=== PATIENT | female | born 1985 | race African-American/Black ===

== ENCOUNTER 2021-11-24 18:00 | Inpatient (IN) | payer OTHER ==
[2021-11-24 20:09] VITALS: BMI 26.7
[2021-11-24] MEDS ORDERED: Promethazine HCl 25 MG/ML VIAL IM PRN (20:49)
[2021-11-24] MEDS ORDERED: Misoprostol 200 MCG TAB PR PRN (20:49)
[2021-11-24] MEDS ORDERED: Ibuprofen 800 MG TAB PO PRN (20:49)
[2021-11-24] MEDS ORDERED: hydrALAZINE 20 MG/ML VIAL SLOW IVP PRN (20:49)
[2021-11-24] MEDS ORDERED: Acetaminophen 500 MG TAB PO PRN (20:49)
[2021-11-24] MEDS ORDERED: Ondansetron PF 4 MG/2 ML Vial IVP PRN (20:49)
[2021-11-24] MEDS ORDERED: Lidocaine 1% (PF) 30 ML VIAL SC PRN (20:49)
[2021-11-24] MEDS ORDERED: NS w/ Oxytocin 30 units 500 ML IV SCH ×2 (21:00→22:15)
[2021-11-24] MEDS ORDERED: Lactated Ringer's 1,000 ML IV SCH (21:00)
[2021-11-24 21:17] LABS: Hemoglobin 11.2 g/dL (12.0-15.5); Mean Corpuscular HGB CONC 33.4 g/dL (32.0-36.0); Mean Corpuscular Hemoglobin 33.2 pg (27.0-33.0); Mean Corpuscular Volume 99.4 fl (81.6-98.3); Mean Platelet Volume 11.2 fl (7.4-10.4); Platelet Count 195 10x3/uL (150-450); Red Blood Cell (RBC) Count 3.37 10x6/uL (3.90-5.03); White Blood Cell (WBC) Count 9.7 10x3/uL (3.5-10.5)
[2021-11-24 21:25] LABS: ALT (SGPT) Less than 6 U/L (8-55); AST (SGOT) 13 U/L (5-34); Albumin 3.7 g/dL (3.5-5.0); Alkaline Phosphatase 113 U/L (40-110); Anion Gap 12 mmol/L (10-20); BUN (Urea Nitrogen) 9 mg/dL (7.0-18.7); Bilirubin, Total 0.3 mg/dL (0.2-1.2); Calc. Creatinine Clearance 134 mL/min (70-130); Calcium 9.5 mg/dL (7.8-10.44); Carbon Dioxide 25 mmol/L (22-29); Chloride 105 mmol/L (98-107); Globulin 3.1 g/dL (2.4-3.5); Glucose 76 mg/dL (70-105); Potassium 4.2 mmol/L (3.5-5.1); Protein, Total 6.8 g/dL (6.0-8.3); Sodium 138 mmol/L (136-145); Uric Acid 4.7 mg/dL (2.6-6.0)
[2021-11-24 21:42] LABS: HIV (1/2) Antibody/Antigen Non-Reactive (NonReactive); HIV 1/2 INDEX 0.08 S/CO (<1.00); Hep B Surf Ag Non-Reactive S/CO (NonReactive); Syphilis Antibody Nonreactive (Nonreactive); Syphilis Antibody Index 0.07 S/CO (<1.00 Non-Reactive)
[2021-11-24] MEDS ORDERED: Penicillin G Potassium 5 MILL.UNITS in Sodium Chloride 0.9% 100 ML IVPB SCH (22:00)
[2021-11-24 22:47] LABS: Amphetamine Not Detected (NotDetected); Barbiturates Screen Not Detected (NotDetected); Benzodiazepine Screen Not Detected (NotDetected); Cocaine Metabolite Screen Not Detected (NotDetected); Methadone Not Detected (NotDetected); Methamphetamine Not Detected (NotDetected); Opiate Screen Not Detected (NotDetected); Oxycodone Screen Not Detected (NotDetected); Phencyclidine (PCP) Not Detected (NotDetected); THC/Cannabinoid Screen Detected (NotDetected); Tricyclic Screen Not Detected (NotDetected)
[2021-11-24 22:55] LABS: Creatinine, Urine 72.23 mg/dL (47-110); Protein, Urine Random Quant Less than 10 mg/dL (1-14)
[2021-11-25] MEDS ORDERED: Fentanyl 2 mcg/Bup 0.1% Cadd 100 ML ONE (03:31)
[2021-11-25] MEDS ORDERED: diphenhydrAMINE 50 MG/ML VIAL IVP PRN (03:55)
[2021-11-25] MEDS ORDERED: Ondansetron PF 4 MG/2 ML Vial IVP PRN ×2 (03:55→14:27)
[2021-11-25] MEDS ORDERED: Promethazine HCl 25 MG/ML VIAL IM PRN ×2 (03:55→14:27)
[2021-11-25] MEDS ORDERED: ePHEDrine Sulfate 50 MG/10 ML VIAL SLOW IVP PRN (03:55)
[2021-11-25] MEDS ORDERED: Hydrocerin (Eucerin) Cream 120 gm Jar TOP PRN (03:55)
[2021-11-25] MEDS ORDERED: Naloxone HCl 0.4 mg/ml Vial IVP PRN ×2 (03:55)
[2021-11-25] MEDS ORDERED: Communication Order-Pharmacy FS SCH (04:00)
[2021-11-25] MEDS ORDERED: Fentanyl 2 mcg/Bupivacaine 0.1% Cassette 100 ML EPIDURAL SCH (04:00)
[2021-11-25] MEDS ORDERED: Lactated Ringer's 500 ML IV PRN (04:06)
[2021-11-25] MEDS: Penicillin G 2.5 MILL.units 2.5 MILL.UNITS in Premix Bag 1 BAG IVPB SCH ×3 (04:40→15:11)
[2021-11-25] MEDS ORDERED: Bupivacaine/Epinephrine 0.25% 30 ML VIAL ONE (08:00)
[2021-11-25 08:08] LABS: SARS-CoV-2 NAA Rapid Test Not Detected (NotDetected)
[2021-11-25] MEDS ORDERED: NIFEdipine 10 MG CAP ONE (10:23)
[2021-11-25] MEDS ORDERED: NIFEdipine 10 MG CAP PO SCH (10:30)
[2021-11-25] MEDS ORDERED: Carboprost 250 MCG/ML AMP ONE (12:13)
[2021-11-25] MEDS ORDERED: Misoprostol 200 MCG TAB ONE (12:13)
[2021-11-25] MEDS ORDERED: hydrALAZINE 20 MG/ML VIAL SLOW IVP PRN (14:27)
[2021-11-25] MEDS ORDERED: Milk Of Magnesia 30 ML UDCUP PO PRN (14:27)
[2021-11-25] MEDS ORDERED: Methylergonovine 0.2 MG/ML VIAL IM PRN (14:27)
[2021-11-25] MEDS ORDERED: Benzocaine-Menthol 82.5 ML CAN TOP PRN (14:27)
[2021-11-25] MEDS ORDERED: Lanolin Ointment 7 GM TUBE TOP PRN (14:27)
[2021-11-25] MEDS ORDERED: NS w/ Oxytocin 30 units 500 ML IV SCH (14:27)
[2021-11-25] MEDS ORDERED: Bisacodyl 10 MG SUPP PR PRN (14:27)
[2021-11-25] MEDS ORDERED: Misoprostol 200 MCG TAB VAG PRN (14:27)
[2021-11-25] MEDS ORDERED: Ibuprofen 800 MG TAB PO SCH (14:45)
[2021-11-25] MEDS: Ferrous Sulfate 325 MG TAB PO SCH (15:11)
[2021-11-25] MEDS: Acetaminophen 325 MG TAB PO PRN ×2 (16:53→22:21)
[2021-11-25] MEDS: Ibuprofen 800 MG TAB PO SCH (21:09)
[2021-11-25] MEDS: Docusate 100 MG CAP PO SCH (21:10)
[2021-11-26] MEDS: Ibuprofen 800 MG TAB PO SCH ×3 (05:24→22:00)
[2021-11-26] MEDS: Acetaminophen 325 MG TAB PO PRN (06:30)
[2021-11-26] MEDS: Prenatal Vitamin 1 TAB PO SCH (09:00)
[2021-11-26] MEDS: Ferrous Sulfate 325 MG TAB PO SCH ×2 (09:00→16:53)
[2021-11-26] MEDS: Docusate 100 MG CAP PO SCH ×2 (09:01→22:01)
[2021-11-26] MEDS ORDERED: Boostrix 0.5 ML (Tdap) VIAL IM ONE (14:27)
[2021-11-26] MEDS ORDERED: diphenhydrAMINE 25 MG CAP PO PRN (19:44)
[2021-11-27] MEDS: Ibuprofen 800 MG TAB PO SCH (05:13)
[2021-11-27 05:24] VITALS: BP 110/66; TEMP 98.2
[2021-11-27] MEDS: Ferrous Sulfate 325 MG TAB PO SCH (08:29)
[2021-11-27] MEDS: Prenatal Vitamin 1 TAB PO SCH (09:30)
[2021-11-27] MEDS: Docusate 100 MG CAP PO SCH (09:30)
== END 2021-11-27 12:45 | disposition home or self-care (01) | DRG 806 ==
LOC: CSHLD 18:21 → CSHPP 11-25 14:50
PROVIDERS: ADMIT Obstetrics & Gynecology; ATTEND Obstetrics & Gynecology
PROC: 10E0XZZ Delivery of Products of Conception, External Approach (ICD-10-PCS; principal; 2021-11-25)
PROC: 10907ZC Drainage of Amniotic Fluid, Therapeutic from Products of Conception, Via Natural or Artificial Opening (ICD-10-PCS; 2021-11-25)
DX: O36.5930 Maternal care for other known or suspected poor fetal growth, third trimester, not applicable or unspecified (principal); O98.82 Other maternal infectious and parasitic diseases complicating childbirth; Z37.0 Single live birth; O99.324 Drug use complicating childbirth; O23.593 Infection of other part of genital tract in pregnancy, third trimester; O76 Abnormality in fetal heart rate and rhythm complicating labor and delivery; O99.824 Streptococcus B carrier state complicating childbirth; O99.334 Smoking (tobacco) complicating childbirth; F17.210 Nicotine dependence, cigarettes, uncomplicated; F15.10 Other stimulant abuse, uncomplicated; O13.4 Gestational [pregnancy-induced] hypertension without significant proteinuria, complicating childbirth; F12.10 Cannabis abuse, uncomplicated; A59.01 Trichomonal vulvovaginitis; N76.0 Acute vaginitis; O71.82 Other specified trauma to perineum and vulva; Z20.822 Contact with and (suspected) exposure to COVID-19; Z79.1 Long term (current) use of non-steroidal anti-inflammatories (NSAID); Z3A.40 40 weeks gestation of pregnancy; Z79.899 Other long term (current) drug therapy; Z82.49 Family history of ischemic heart disease and other diseases of the circulatory system
CPT/HCPCS: 80053; 80306; 82570; 84156; 84550; 85027; 86780; 86850; 86900; 86901; 87340; 87389; J1200; J2540; J2590; J3490; U0002

== ENCOUNTER 2022-11-30 13:21 | Inpatient (IN) | payer OTHER ==
[2022-11-30] MEDS ORDERED: Ondansetron PF 4 MG/2 ML Vial IVP PRN ×2 (13:29→14:57)
[2022-11-30] MEDS ORDERED: Promethazine HCl 25 MG/ML VIAL IM PRN (13:29)
[2022-11-30] MEDS ORDERED: hydrALAZINE 20 MG/ML VIAL SLOW IVP PRN ×5 (13:29→14:59)
[2022-11-30] MEDS ORDERED: NS w/ Oxytocin 30 units 500 ML IV SCH ×2 (13:30→15:00)
[2022-11-30] MEDS ORDERED: Penicillin G Potassium 5 MILL.UNITS VIAL ONE (13:42)
[2022-11-30] MEDS ORDERED: Ibuprofen 800 MG TAB PO PRN (13:44)
[2022-11-30] MEDS ORDERED: Lidocaine 1% (PF) 30 ML VIAL SC PRN (13:44)
[2022-11-30] MEDS ORDERED: Penicillin G Potassium 5 MILL.UNITS in Sodium Chloride 0.9% 100 ML IVPB SCH (13:45)
[2022-11-30] MEDS ORDERED: Tranexamic Acid 1,000 MG/10 ML VIAL IVP PRN (13:47)
[2022-11-30] MEDS ORDERED: Misoprostol 200 MCG TAB PR PRN (13:47)
[2022-11-30] MEDS ORDERED: Carboprost 250 MCG/ML AMP IM PRN (13:48)
[2022-11-30 14:04] LABS: Amphetamine Detected (NotDetected); Barbiturates Screen Not Detected (NotDetected); Benzodiazepine Screen Not Detected (NotDetected); Cocaine Metabolite Screen Not Detected (NotDetected); Methadone Not Detected (NotDetected); Methamphetamine Detected (NotDetected); Opiate Screen Detected (NotDetected); Oxycodone Screen Not Detected (NotDetected); Phencyclidine (PCP) Not Detected (NotDetected); THC/Cannabinoid Screen Detected (NotDetected); Tricyclic Screen Not Detected (NotDetected)
[2022-11-30 14:29] LABS: Hemoglobin 11.8 g/dL (12.0-15.5); Mean Corpuscular HGB CONC 32.3 g/dL (32.0-36.0); Mean Corpuscular Hemoglobin 32.7 pg (27.0-33.0); Mean Corpuscular Volume 101.1 fl (81.6-98.3); Mean Platelet Volume 11.1 fl (7.4-10.4); Platelet Count 161 10x3/uL (150-450); Red Blood Cell (RBC) Count 3.61 10x6/uL (3.90-5.03); White Blood Cell (WBC) Count 12.7 10x3/uL (3.5-10.5)
[2022-11-30] MEDS ORDERED: Magnesium Sulfate 20 gm/500 ml 20 GM/500 ML BAG ONE (14:39)
[2022-11-30] MEDS ORDERED: Bisacodyl 10 MG SUPP PR PRN (14:57)
[2022-11-30] MEDS ORDERED: Preparation H Ointment 28 GM TUBE PR PRN (14:57)
[2022-11-30] MEDS ORDERED: Acetaminophen/Codeine 30-300mg Tablet PO PRN (14:57)
[2022-11-30] MEDS ORDERED: Lanolin Ointment 7 GM TUBE TOP PRN (14:57)
[2022-11-30] MEDS ORDERED: Milk Of Magnesia 30 ML UDCUP PO PRN (14:57)
[2022-11-30] MEDS ORDERED: Boostrix 0.5 ML (Tdap) VIAL (>/=7 yrs of age) IM ONE (14:57)
[2022-11-30] MEDS ORDERED: Misoprostol 200 MCG TAB VAG PRN (14:57)
[2022-11-30] MEDS ORDERED: Methylergonovine 0.2 MG/ML VIAL IM PRN (14:57)
[2022-11-30] MEDS ORDERED: Calcium Gluc 4.6 MEQ/10 ML (100 MG/ML) SLOW IVP PRN (14:59)
[2022-11-30] MEDS ORDERED: Lorazepam 2 MG/ML VIAL SLOW IVP PRN (14:59)
[2022-11-30] MEDS ORDERED: Labetalol HCl 100 MG/20 ML VIAL SLOW IVP PRN ×2 (14:59)
[2022-11-30 15:15] LABS: ALT (SGPT) 9 U/L (8-55); AST (SGOT) 25 U/L (5-34); Albumin 3.6 g/dL (3.5-5.0); Alkaline Phosphatase 118 U/L (40-110); Anion Gap 17 mmol/L (10-20); BUN (Urea Nitrogen) 6 mg/dL (7.0-18.7); Bilirubin, Total 0.4 mg/dL (0.2-1.2); Calc. Creatinine Clearance 0 mL/min (70-130); Calcium 8.9 mg/dL (7.8-10.44); Carbon Dioxide 17 mmol/L (22-29); Chloride 107 mmol/L (98-107); Estimated GFR 120; Globulin 3.4 g/dL (2.4-3.5); Glucose 68 mg/dL (70-105); Potassium 4.1 mmol/L (3.5-5.1); Sodium 137 mmol/L (136-145)
[2022-11-30] MEDS ORDERED: Magnesium Sulfate 20 gm/500 ml 20 GM/500 ML BAG IVPB SCH (15:15)
[2022-11-30 15:31] LABS: HBSAg Index 0.19 S/CO (0-0.99); Hep B Surf Ag - L&D Non-Reactive S/CO (NonReactive)
[2022-11-30 15:32] LABS: Syphilis Antibody Nonreactive (Nonreactive); Syphilis Antibody Index 0.04 S/CO (<1.00 Non-Reactive)
[2022-11-30 17:34] VITALS: BMI 30.6
[2022-11-30] MEDS ORDERED: NIFEdipine XL 30 MG TAB PO SCH (18:00)
[2022-11-30] MEDS: diphenhydrAMINE 25 MG CAP PO PRN (19:15)
[2022-11-30 19:24] LABS: HIV (1/2) Antibody/Antigen Non-Reactive (NonReactive); HIV 1/2 INDEX 0.09 S/CO (<1.00)
[2022-11-30] MEDS ORDERED: Docusate 100 MG CAP PO SCH (21:00)
[2022-12-01 04:20] LABS: #Eosinphils 0.2 10x3/uL (0.0-0.5); #Monocytes 1.2 10x3/uL (0.0-1.1); #Neutrophils 9.1 10x3/uL (1.5-8.4); %Basophils 0.2 % (0.0-2.0); %Eosinophils 1.5 % (0.0-6.0); %Lymphocytes 14.9 % (18.0-47.0); %Monocytes 9.3 % (0.0-10.0); %Neutrophils 73.8 % (40.0-75.0); Hemoglobin 11.7 g/dL (12.0-15.5); Mean Corpuscular HGB CONC 32.9 g/dL (32.0-36.0); Mean Corpuscular Hemoglobin 32.4 pg (27.0-33.0); Mean Corpuscular Volume 98.6 fl (81.6-98.3); Mean Platelet Volume 11.2 fl (7.4-10.4); Platelet Count 165 10x3/uL (150-450); Red Blood Cell (RBC) Count 3.61 10x6/uL (3.90-5.03); White Blood Cell (WBC) Count 12.4 10x3/uL (3.5-10.5)
[2022-12-01] MEDS: Penicillin G 2.5 MILL.units 2.5 MILL.UNITS in Premix Bag 1 BAG IVPB SCH ×2 (06:09→10:01)
[2022-12-01] MEDS: Ferrous Sulfate 325 MG TAB PO SCH ×2 (06:09→08:28)
[2022-12-01] MEDS: Ibuprofen 800 MG TAB PO SCH ×3 (06:10→14:21)
[2022-12-01] MEDS ORDERED: NIFEdipine XL 30 MG TAB PO SCH ×3 (09:00→10:30)
[2022-12-01] MEDS ORDERED: Prenatal Vitamin 1 TAB PO SCH (09:00)
[2022-12-01] MEDS: diphenhydrAMINE 25 MG CAP PO PRN (11:13)
[2022-12-01 14:49] VITALS: TEMP 98.2
[2022-12-01 15:26] VITALS: BP 141/94
[2022-12-02] MEDS ORDERED: NIFEdipine XL 60 MG TAB PO SCH (09:00)
== END 2022-12-01 16:15 | disposition left against medical advice (07) | DRG 807 ==
LOC: CSHLD/OP 13:21 → CSHLD 13:44 → CSHPP 12-01 14:35
PROVIDERS: ADMIT Family Medicine; ATTEND Family Medicine
PROC: 10E0XZZ Delivery of Products of Conception, External Approach (ICD-10-PCS; principal; 2022-11-30)
DX: O99.324 Drug use complicating childbirth (principal); Z37.0 Single live birth; F15.90 Other stimulant use, unspecified, uncomplicated; Z3A.38 38 weeks gestation of pregnancy; Z79.899 Other long term (current) drug therapy; F12.90 Cannabis use, unspecified, uncomplicated; F11.90 Opioid use, unspecified, uncomplicated
CPT/HCPCS: 36415; 80053; 80306; 82570; 84156; 85025; 85027; 86762; 86780; 86850; 86900; 86901; 87340; 87389; J2540; J3475

== ENCOUNTER 2025-04-01 11:41 | Inpatient (IN) | payer OTHER, MEDICAID ==
[2025-04-01 12:07] VITALS: BMI 24.0
[2025-04-01] MEDS ORDERED: hydrALAZINE 20 MG/ML VIAL SLOW IVP PRN (12:12)
[2025-04-01] MEDS ORDERED: Carboprost 250 MCG/ML AMP IM PRN (12:25)
[2025-04-01] MEDS ORDERED: Ondansetron PF 4 MG/2 ML Vial IVP PRN ×2 (12:25→14:16)
[2025-04-01] MEDS ORDERED: Acetaminophen 500 MG TAB PO PRN (12:25)
[2025-04-01] MEDS ORDERED: Diphenoxylate HCl/Atropine Tablet PO PRN (12:25)
[2025-04-01] MEDS ORDERED: Tranexamic Acid 1,000 MG/10 ML VIAL IVP PRN (12:25)
[2025-04-01] MEDS ORDERED: Lidocaine 1% (PF) 30 ML VIAL SC PRN (12:28)
[2025-04-01] MEDS ORDERED: HYDROcodone/Acetaminophen 5/325 mg Tablet PO PRN (12:28)
[2025-04-01] MEDS ORDERED: Ibuprofen 800 MG TAB PO PRN (12:28)
[2025-04-01 12:50] LABS: Hematocrit 31.7 % (34.9-44.5); Hemoglobin 10.3 g/dL (12.0-15.5); Mean Corpuscular Hemoglobin 32.7 pg (27.0-33.0); Mean Corpuscular Volume 100.6 fL (81.6-98.3); Platelet Count 185 10x3/uL (150-450); Red Blood Cell (RBC) Count 3.15 10x6/uL (3.90-5.03); White Blood Cell (WBC) Count 12.20 10x3/uL (3.5-10.5)
[2025-04-01] MEDS: Penicillin G Potassium 5 MILL.UNITS in Sodium Chloride 0.9% 100 ML IVPB SCH (13:39)
[2025-04-01 13:50] LABS: HIV (1/2) Antibody/Antigen Non-Reactive (NonReactive); HIV 1/2 INDEX 0.21 S/CO (<1.00); Hep B Surf Ag - L&D Non-Reactive S/CO (NonReactive)
[2025-04-01 13:51] LABS: Syphilis Antibody Index 0.08 S/CO (<1.00 Non-Reactive)
[2025-04-01] MEDS: fentaNYL/Ropivacaine Epidural 100 ML ONE (13:51)
[2025-04-01] MEDS ORDERED: Acetaminophen 325 MG TAB PO PRN (14:16)
[2025-04-01] MEDS ORDERED: Communication Order-Pharmacy FS SCH (14:30)
[2025-04-01] MEDS ORDERED: fentaNYL 2 mcg/Ropivacaine 0.2% Epidural 100 ML CADD EPIDURAL SCH (14:30)
[2025-04-01] MEDS ORDERED: Benzocaine-Menthol 82.5 ML CAN TOP PRN (15:19)
[2025-04-01] MEDS ORDERED: Methylergonovine 0.2 MG/ML VIAL IM PRN (15:19)
[2025-04-01] MEDS ORDERED: Milk Of Magnesia 30 ML UDCUP PO PRN (15:19)
[2025-04-01] MEDS ORDERED: Bisacodyl 10 MG SUPP PR PRN (15:19)
[2025-04-01] MEDS ORDERED: Lanolin Ointment 7 GM TUBE TOP PRN (15:19)
[2025-04-01] MEDS ORDERED: Preparation H Ointment 28 GM TUBE PR PRN (15:19)
[2025-04-01] MEDS ORDERED: Boostrix 0.5 ML (Tdap) VIAL (>/=7 yrs of age) IM ONE (15:19)
[2025-04-01] MEDS: Oxytocin 30 units/NS 500 ML 500 ML IV SCH (15:20)
[2025-04-01 15:28] LABS: Cocaine Metabolite Screen Negative (Negative); THC/Cannabinoid Screen PRELIM POSITIVE (Negative); Tricyclic Screen Negative (Negative)
[2025-04-01] MEDS ORDERED: Penicillin G 2.5 MILL.units 2.5 MILL.UNITS in Premix 1 BAG IVPB SCH (16:30)
[2025-04-01] MEDS: Ferrous Sulfate 325 MG TAB PO SCH (17:35)
[2025-04-01] MEDS: Ibuprofen 800 MG TAB PO SCH (17:38)
[2025-04-01] MEDS: diphenhydrAMINE 50 MG/ML VIAL IVP PRN (17:38)
[2025-04-02 03:54] LABS: Hematocrit 28.3 % (34.9-44.5); Hemoglobin 9.4 g/dL (12.0-15.5)
[2025-04-02] MEDS: diphenhydrAMINE 25 MG CAP PO PRN (08:51)
[2025-04-03 09:48] VITALS: BP 138/79; TEMP 98.6
== END 2025-04-03 11:41 | disposition home or self-care (01) | DRG 806 ==
LOC: CSHLD/OP 11:41 → CSHLD 13:10 → CSHPED 18:00
PROVIDERS: ADMIT Obstetrics & Gynecology; ATTEND Obstetrics & Gynecology
PROC: 10E0XZZ Delivery of Products of Conception, External Approach (ICD-10-PCS; principal; 2025-04-01)
DX: O60.14X0 Preterm labor third trimester with preterm delivery third trimester, not applicable or unspecified (principal); O99.324 Drug use complicating childbirth; Z37.0 Single live birth; Z3A.35 35 weeks gestation of pregnancy; O99.334 Smoking (tobacco) complicating childbirth
CPT/HCPCS: 36415; 51702; 76815; 80306; 85014; 85018; 85027; 86762; 86780; 86850; 86900; 86901; 87340; 87389; 99285; J1200; J2540; J2590; J7120